=== PATIENT | male | born 1950 | race Caucasian/White ===

== ENCOUNTER 2016-12-22 15:17 | Emergency (ER) | payer MEDICARE, OTHER ==
[~2016-12-22] VITALS: Ht 193 cm; Wt 109.1 kg
[~2016-12-22 15:17] MED LIST: AMITRIPTYLINE H25 M1 PO; ANDROGEL1% TP; ASPIRIN 81M81 MG/TA2 PO; AVODART 0.5MG0.5 MG PO; BYSTOLIC10 MG PO; CELEXA10 MG PO; CENTRUM SILVER1 CTB PO; CIALIS20 MG PO; CRANBERRY1 CAP PO; EPA FISH OIL1000 MG PO; FLEXERIL 1010 MG/TAB PO; GUAIFEN AC 10120 ML PO; HUMULIN 70/3100 U/ML SQ; LANTUS SOLOS100 U/ML SQ; LEVAQUIN 750MG750 M1 PO; LEVEMIR100 U/ML SQ; LOPRESSOR 550 MG/TAB PO; LYRICA 150MG C150 MG PO; MAGNESIUM500 MG PO; NEURONTIN300 MG/CAP PO; NORCO 325 MG-7.1 TAB PO; NOVOLOG 100U100 U/M1 SC; PLENDIL 5MG TAB5 MG PO; PLENDIL10 MG PO; PRILOSEC 20MG20 MG PO; PRILOSEC10 MG PO; PROAIR HFA0.09 MG/AC IH; REQUIP 1MG T1 MG/TAB PO; RT ALBUTER2.5 MG/0.5 IH; SLEEP AID25 M1 PO; SLEEP PO; STOOL SOFTENER100 M2 PO; TEKTURNA150 MG PO; TEKTURNA300 MG PO; TESTIM1% TP; TRICOR145 MG PO; TYLENOL 325MG325 MG PO; VITAMIN B121000 MC2 SL; VITAMIN C PUR1000 MG PO; VITAMIN C500 MG PO; VITAMINC1000TA; ZOCOR 20MG20 MG PO; [UNRECOGNIZED DRUG - CODE] PO; [UNRECOGNIZED DRUG - OTHER] PO; [UNRECOGNIZED DRUG - OTHER] PO
[2016-12-22 15:19] VITALS: TEMP 98.3
[2016-12-22] MEDS ORDERED: BACTRIM DS 8001 TAB PO (15:53)
[2016-12-22 16:40] LABS: BASO % 0.4 % (0.0-2.0); EOS # 0.2 (0.0-0.7); EOS % 2.7 % (0-4.0); GRAN # 4.4 (1.4-6.5); GRAN % 59.2 % (42.2-75.2); HEMATOCRIT 43.4 % (42.0-52.0); HEMOGLOBIN 14.9 g/dl (13.5-18.0); LYMPH # 2.2 (1.2-3.4); LYMPH % 29.1 % (20.0-51.0); MEAN CELL VOLUME 93 fl (80.0-100.0); MEAN CORPUSCULAR HEMOGLOBIN 32 pg (27.0-31.0); MEAN CORPUSCULAR HGB CONC 34 g/dl (33.0-37.0); MEAN PLATELET VOLUME 10.1 fl (7.4-10.4); MONO # 0.6 (0.1-0.6); MONO % 8.2 % (1.7-9.3); PLATELET COUNT 185 K/mm3 (130-400); RED BLOOD COUNT 4.69 M/mm3 (4.20-5.60); REDCELL DISTRIBUTION WIDTH-CV 12.5 % (11.5-14.5); WHITE BLOOD COUNT 7.5 K/mm3 (4.8-10.8)
[2016-12-22 16:51] LABS: ADJUSTED CALCIUM 9.3 mg/dL (8.4-10.2); ALBUMIN 4.3 gm/dL (3.5-5.0); BILIRUBIN,TOTAL 0.6 mg/dL (0.0-1.0); CALCIUM 9.5 mg/dL (8.4-10.2); CREATININE, serum 1.41 mg/dL (0.66-1.25); TOTAL PROTEIN 7.2 gm/dL (6.4-8.2)
[2016-12-22 17:11] LABS: PH 6 (5-8); SQUAMOUS EPITHELIAL None Seen /hpf; URINE APPEARANCE Cloudy; URINE BACTERIA Rare /hpf; URINE BILIRUBIN Negative (NEGATIVE); URINE BLOOD 3+ (NEGATIVE); URINE COLOR Yellow; URINE GLUCOSE Negative (NEGATIVE); URINE KETONE Negative (NEGATIVE); URINE RBC >50 /hpf; URINE UROBILINOGEN Negative (NEGATIVE)
[2016-12-22 17:12] LABS: URINE WBC >50 /hpf
[2016-12-22] MEDS ORDERED: CEFTIN 250250 MG/TAB PO (17:18)
[2016-12-22 17:31] VITALS: BP 145/69; PULSE 64
== END 2016-12-22 17:35 | disposition home or self-care (01) ==
LOC: COL.ER 15:17
PROVIDERS: Nurse Practitioner
DX: N39.0 Urinary tract infection, site not specified (principal); E11.40 Type 2 diabetes mellitus with diabetic neuropathy, unspecified; I10 Essential (primary) hypertension; J45.909 Unspecified asthma, uncomplicated; K21.9 Gastro-esophageal reflux disease without esophagitis; M19.90 Unspecified osteoarthritis, unspecified site; Z79.4 Long term (current) use of insulin; Z79.82 Long term (current) use of aspirin; Z98.890 Other specified postprocedural states
CPT/HCPCS: J7030

== ENCOUNTER 2017-06-30 23:33 | Inpatient (IN) | payer MEDICARE, OTHER ==
[~2017-06-30] VITALS: Ht 193 cm; Wt 110.5 kg
[~2017-06-30 23:33] MED LIST changes: +BACTRIM DS 8001 TAB PO; +CEFTIN 250250 MG/TAB PO; -LOPRESSOR 550 MG/TAB PO; +METOPROLOL TART75 MG PO
[2017-07-01 00:11] LABS: BASO % 0.6 % (0.0-2.0); EOS % 0.6 % (0-4.0); GRAN # 1.6 (1.4-6.5); GRAN % 35.5 % (42.2-75.2); HEMATOCRIT 40.1 % (42.0-52.0); HEMOGLOBIN 13.8 g/dl (13.5-18.0); LYMPH # 2.4 (1.2-3.4); LYMPH % 51.7 % (20.0-51.0); MEAN CELL VOLUME 94 fl (80.0-100.0); MEAN CORPUSCULAR HEMOGLOBIN 32 pg (27.0-31.0); MEAN CORPUSCULAR HGB CONC 34 g/dl (33.0-37.0); MEAN PLATELET VOLUME 10.1 fl (7.4-10.4); MONO # 0.5 (0.1-0.6); PLATELET COUNT 179 K/mm3 (130-400); RED BLOOD COUNT 4.29 M/mm3 (4.20-5.60); WHITE BLOOD COUNT 4.6 K/mm3 (4.8-10.8)
[2017-07-01 00:21] LABS: ADJUSTED CALCIUM 9.8 mg/dL (8.4-10.2); ALBUMIN 4.2 gm/dL (3.5-5.0); BILIRUBIN,TOTAL 0.7 mg/dL (0.0-1.0); C-REACTIVE PROTEIN 2.5 mg/dL (0.0-0.9); CREATININE, serum 1.3 mg/dL (0.66-1.25); POTASSIUM 4.1 mmol/L (3.4-5.0); TOTAL PROTEIN 7.5 gm/dL (6.4-8.2)
[2017-07-01 00:37] LABS: INFLUENZA A NEGATIVE; INFLUENZA B NEGATIVE
[2017-07-01] MEDS ORDERED: NORVASC2.5 MG PO (01:09)
[2017-07-01 02:00] LABS: B-TYPE NATRIURETIC PEPTIDE 13 pg/mL (0-125); TROPONIN-I < 0.012 ng/mL (0.000-0.034)
[2017-07-01] MEDS ORDERED: HCTZ12.5TAB PO (02:53)
[2017-07-01] MEDS ORDERED: DOXYCYCLINE HY100 MG PO (02:59)
[2017-07-01] MEDS ORDERED: NEURONTIN300 MG/CAP PO (03:02)
[2017-07-01 03:04] LABS: ARTERIAL BLD GAS O2 SATURATION 84.3 % (92-100); ARTERIAL BLD GAS TCO2 CT 23.8; ARTERIAL BLOOD GAS HCO3 22.7 meq/L (22-26); ARTERIAL BLOOD GAS PO2 51.5 mmHg (80-100); ARTERIAL BLOOD GAS pH 7.44 (7.35-7.45); OXYHEMOGLOBIN 83.2 %
[2017-07-01 03:05] LABS: ALLEN TEST YES; ALLENS TEST RESULT PASS; ATS? YES
[2017-07-01 03:14] LABS: PROTHROMBIN TIME 12.1 SECONDS (9.7-12.8)
[2017-07-01 03:17] LABS: PARTIAL THROMBOPLASTIN TIME 31.4 SECONDS (26.0-37.0)
[2017-07-01] MEDS ORDERED: NEURONTIN600 MG/TAB PO ×2 (03:34→03:36)
[2017-07-01 04:28] LABS: ARTERIAL BLD GAS O2 SATURATION 94.4 % (92-100); ARTERIAL BLD GAS TCO2 CT 22.4; ARTERIAL BLOOD GAS BASE EXCESS -2.7 (-2-2); ARTERIAL BLOOD GAS HCO3 21.4 meq/L (22-26); ARTERIAL BLOOD GAS PHT 7.41 C (7.35-7.45); ARTERIAL BLOOD GAS PO2 79.7 mmHg (80-100); ARTERIAL BLOOD GAS PO2T 79.7 (80-100); ARTERIAL BLOOD GAS pH 7.41 (7.35-7.45); OXYHEMOGLOBIN 93.6 %
[2017-07-01 04:29] LABS: ALLEN TEST NO; ATS? YES
[2017-07-01 05:10] LABS: COLLECTION METHOD CLEAN CATCH
[2017-07-01 05:16] LABS: MUCOUS Present /lpf; PH 5 (5-8); SQUAMOUS EPITHELIAL None Seen /hpf; URINE APPEARANCE Clear; URINE BACTERIA None Seen /hpf; URINE BILIRUBIN Negative (NEGATIVE); URINE BLOOD Negative (NEGATIVE); URINE COLOR Yellow; URINE GLUCOSE 1+ (NEGATIVE); URINE KETONE Negative (NEGATIVE); URINE LEUKOCYTE ESTERASE Negative (NEGATIVE); URINE PROTEIN(semi-quant) Negative (NEGATIVE); URINE RBC 0-2 /hpf; URINE UROBILINOGEN Negative (NEGATIVE); URINE WBC 0-2 /hpf
[2017-07-01 06:43] LABS: HEMOGLOBIN 12.1 g/dl (13.5-18.0); MEAN CELL VOLUME 96 fl (80.0-100.0); MEAN CORPUSCULAR HEMOGLOBIN 32 pg (27.0-31.0); MEAN CORPUSCULAR HGB CONC 33 g/dl (33.0-37.0); MEAN PLATELET VOLUME 9.8 fl (7.4-10.4); PLATELET COUNT 176 K/mm3 (130-400); RED BLOOD COUNT 3.84 M/mm3 (4.20-5.60); WHITE BLOOD COUNT 3.7 K/mm3 (4.8-10.8)
[2017-07-01 06:50] LABS: ADD PATHOLOGY DIFF REVIEW NO; HEMATOCRIT 36.9 % (42.0-52.0)
[2017-07-01 06:54] LABS: ADJUSTED CALCIUM 9.2 mg/dL (8.4-10.2); ALBUMIN 3.6 gm/dL (3.5-5.0); BILIRUBIN,TOTAL 0.5 mg/dL (0.0-1.0); CALCIUM 8.9 mg/dL (8.4-10.2); CREATININE, serum 1.23 mg/dL (0.66-1.25); TOTAL PROTEIN 6.5 gm/dL (6.4-8.2)
[2017-07-01 07:53] VITALS: BP 133/65; PULSE 77; TEMP 97.5
[2017-07-01 08:25] LABS: BAND 4 % (0-10); LYMPHOCYTE 63 % (20.0-51.0); NEUTROPHILS 31 % (42.0-75.2); PLATELET ESTIMATE NORMAL (NORMAL); TOTAL CELLS COUNTED 100
[2017-07-01] MEDS ORDERED: ANDROGEL1.62PKT2 TOP (09:55)
[2017-07-01 11:36] VITALS: BP 138/63; PULSE 84
[2017-07-01 15:57] VITALS: BP 134/62; PULSE 83; TEMP 97.9
[2017-07-01 20:14] VITALS: BP 147/60; PULSE 99; TEMP 98.4
[2017-07-01 23:50] VITALS: BP 126/53; PULSE 102; TEMP 102.8
[2017-07-02 03:24] VITALS: BP 131/57; PULSE 78; TEMP 98
[2017-07-02 07:11] LABS: MEAN CELL VOLUME 95 fl (80.0-100.0); MEAN CORPUSCULAR HGB CONC 34 g/dl (33.0-37.0); PLATELET COUNT 167 K/mm3 (130-400); RED BLOOD COUNT 3.61 M/mm3 (4.20-5.60); WHITE BLOOD COUNT 3.3 K/mm3 (4.8-10.8)
[2017-07-02 07:14] LABS: HEMATOCRIT 34.3 % (42.0-52.0); HEMOGLOBIN 11.5 g/dl (13.5-18.0); MEAN CORPUSCULAR HEMOGLOBIN 32 pg (27.0-31.0)
[2017-07-02 07:15] LABS: ADD PATHOLOGY DIFF REVIEW NO
[2017-07-02 07:20] LABS: ADJUSTED CALCIUM 9.5 mg/dL (8.4-10.2); ALBUMIN 3.6 gm/dL (3.5-5.0); BILIRUBIN,TOTAL 0.5 mg/dL (0.0-1.0); CALCIUM 9.2 mg/dL (8.4-10.2); CREATININE, serum 1.15 mg/dL (0.66-1.25); POTASSIUM 3.8 mmol/L (3.4-5.0); TOTAL PROTEIN 6.5 gm/dL (6.4-8.2)
[2017-07-02 07:32] VITALS: BP 142/66; PULSE 74; TEMP 97.8
[2017-07-02 07:55] LABS: BAND 5 % (0-10); LYMPHOCYTE 63 % (20.0-51.0); NEUTROPHILS 27 % (42.0-75.2); PLATELET ESTIMATE NORMAL (NORMAL); TOTAL CELLS COUNTED 100
[2017-07-02 12:33] VITALS: BP 143/64; PULSE 81; TEMP 98.1
[2017-07-02 12:59] LABS: CEREBROSPINAL TUBE #4; CSF APPEARANCE CLEAR; CSF COLOR COLORLESS
[2017-07-02 13:54] LABS: CSF POLYMORPHONUCLEAR 0 % (0-6)
[2017-07-02 14:50] LABS: COLLECTION METHOD CLEAN CATCH
[2017-07-02 14:58] LABS: MUCOUS Present /lpf; PH 7 (5-8); SQUAMOUS EPITHELIAL None Seen /hpf; URINE APPEARANCE Clear; URINE BACTERIA None Seen /hpf; URINE BILIRUBIN Negative (NEGATIVE); URINE BLOOD Negative (NEGATIVE); URINE COLOR Yellow; URINE GLUCOSE 1+ (NEGATIVE); URINE KETONE Negative (NEGATIVE); URINE LEUKOCYTE ESTERASE Negative (NEGATIVE); URINE PROTEIN(semi-quant) Negative (NEGATIVE); URINE RBC None Seen /hpf; URINE WBC 0-2 /hpf
[2017-07-02 15:58] VITALS: BP 156/70; PULSE 81; TEMP 98.4
[2017-07-02 20:00] VITALS: BP 173/77; PULSE 92; TEMP 99.5
[2017-07-02 23:54] VITALS: BP 146/86; PULSE 94; TEMP 98.7
[2017-07-03 00:57] VITALS: BP 152/71; PULSE 81; TEMP 98.9
[2017-07-03 03:42] VITALS: BP 158/60; PULSE 84; TEMP 99.4
[2017-07-03 06:39] LABS: HEMATOCRIT 37.1 % (42.0-52.0); HEMOGLOBIN 12.1 g/dl (13.5-18.0); MEAN CELL VOLUME 96 fl (80.0-100.0); MEAN CORPUSCULAR HEMOGLOBIN 31 pg (27.0-31.0); MEAN CORPUSCULAR HGB CONC 33 g/dl (33.0-37.0); PLATELET COUNT 165 K/mm3 (130-400); RED BLOOD COUNT 3.86 M/mm3 (4.20-5.60); WHITE BLOOD COUNT 4.1 K/mm3 (4.8-10.8)
[2017-07-03 06:41] LABS: ADD PATHOLOGY DIFF REVIEW NO
[2017-07-03 06:55] LABS: CREATININE, serum 1.12 mg/dL (0.66-1.25)
[2017-07-03 07:13] LABS: BAND 10 % (0-10); LYMPHOCYTE 44 % (20.0-51.0); NEUTROPHILS 40 % (42.0-75.2); TOTAL CELLS COUNTED 100
[2017-07-03 07:14] LABS: PLATELET ESTIMATE NORMAL (NORMAL)
[2017-07-03 07:15] LABS: HYPOCHROMIA 1+
[2017-07-03 08:08] VITALS: BP 146/70; PULSE 82; TEMP 98.6
[2017-07-03 11:11] LABS: ARTERIAL BLD GAS O2 SATURATION 91.3 % (92-100); ARTERIAL BLD GAS TCO2 CT 26.8; ARTERIAL BLOOD GAS HCO3 25.6 meq/L (22-26); ARTERIAL BLOOD GAS PHT 7.46 C (7.35-7.45); ARTERIAL BLOOD GAS PO2 61.9 mmHg (80-100); ARTERIAL BLOOD GAS PO2T 61.9 (80-100); ARTERIAL BLOOD GAS pH 7.46 (7.35-7.45); OXYHEMOGLOBIN 90.2 %
[2017-07-03 11:12] LABS: ALLEN TEST YES; ALLENS TEST RESULT PASS; ATS? YES
[2017-07-03 11:17] VITALS: BP 142/65; PULSE 78; TEMP 98.1
[2017-07-03 15:54] VITALS: BP 150/63; PULSE 81; TEMP 97.9
[2017-07-03 19:42] VITALS: BP 162/64; PULSE 80; TEMP 98.9
[2017-07-04] VITALS (7 sets, daily range): BP systolic 137–173; BP diastolic 65–82; PULSE 58–104; TEMP 97.7–99.6
[2017-07-04 07:05] LABS: MEAN CELL VOLUME 95 fl (80.0-100.0); MEAN CORPUSCULAR HEMOGLOBIN 32 pg (27.0-31.0); MEAN CORPUSCULAR HGB CONC 33 g/dl (33.0-37.0); MEAN PLATELET VOLUME 9.9 fl (7.4-10.4); PLATELET COUNT 149 K/mm3 (130-400); WHITE BLOOD COUNT 3.5 K/mm3 (4.8-10.8)
[2017-07-04 07:13] LABS: ADD PATHOLOGY DIFF REVIEW NO; HEMATOCRIT 36.2 % (42.0-52.0)
[2017-07-04 07:21] LABS: ADJUSTED CALCIUM 9.4 mg/dL (8.4-10.2); ALBUMIN 3.4 gm/dL (3.5-5.0); BILIRUBIN,TOTAL 0.7 mg/dL (0.0-1.0); CALCIUM 8.9 mg/dL (8.4-10.2); CREATININE, serum 1.11 mg/dL (0.66-1.25); TOTAL PROTEIN 6.5 gm/dL (6.4-8.2)
[2017-07-04 10:21] LABS: BAND 11 % (0-10); EOSINOPHIL 5 % (0-4); LYMPHOCYTE 50 % (20.0-51.0); NEUTROPHILS 22 % (42.0-75.2); PLATELET ESTIMATE DECREASED (NORMAL); TOTAL CELLS COUNTED 100
[2017-07-04 15:07] LABS: HSV BY PCR 1 DNA Negative (Negative); HSV BY PCR 2 DNA Negative (Negative)
[2017-07-05 03:43] VITALS: BP 166/76; PULSE 76; TEMP 99.4
[2017-07-05 07:22] LABS: HEMATOCRIT 37.4 % (42.0-52.0); HEMOGLOBIN 12.8 g/dl (13.5-18.0); MEAN CELL VOLUME 94 fl (80.0-100.0); MEAN CORPUSCULAR HEMOGLOBIN 32 pg (27.0-31.0); MEAN CORPUSCULAR HGB CONC 34 g/dl (33.0-37.0); MEAN PLATELET VOLUME 9.9 fl (7.4-10.4); PLATELET COUNT 162 K/mm3 (130-400); RED BLOOD COUNT 3.98 M/mm3 (4.20-5.60); WHITE BLOOD COUNT 3.4 K/mm3 (4.8-10.8)
[2017-07-05 07:55] LABS: CALCIUM 9.2 mg/dL (8.4-10.2); CREATININE, serum 1.06 mg/dL (0.66-1.25); MAGNESIUM 1.9 mg/dL (1.6-2.3); PHOSPHOROUS 4.4 mg/dL (2.5-4.5); POTASSIUM 3.8 mmol/L (3.4-5.0)
[2017-07-05 08:11] LABS: ADD PATHOLOGY DIFF REVIEW NO
[2017-07-05 08:13] VITALS: BP 126/68; PULSE 81; TEMP 99.6
[2017-07-05 11:10] LABS: BAND 12 % (0-10); BASOPHIL 1 % (0-2); EOSINOPHIL 2 % (0-4); LYMPHOCYTE 53 % (20.0-51.0); NEUTROPHILS 21 % (42.0-75.2); PLATELET ESTIMATE NORMAL (NORMAL); TOTAL CELLS COUNTED 100
[2017-07-05 11:31] VITALS: BP 132/66; PULSE 73; TEMP 97.7
[2017-07-05] MEDS ORDERED: NORVASC 5MG5 MG/TAB PO (12:21)
== END 2017-07-05 14:26 | disposition home or self-care (01) | DRG 872 ==
LOC: COL.ER 23:33 → MEDICAL 07-01 02:48
PROVIDERS: Emergency Medicine; Internal Medicine; Nurse Practitioner Family; Physician Assistant
PROC: 009U3ZX Drainage of Spinal Canal, Percutaneous Approach, Diagnostic (ICD-10-PCS; principal; 2017-07-02)
DX: A41.9 Sepsis, unspecified organism (principal); I12.9 Hypertensive chronic kidney disease with stage 1 through stage 4 chronic kidney disease, or unspecified chronic kidney disease; E11.22 Type 2 diabetes mellitus with diabetic chronic kidney disease; N18.9 Chronic kidney disease, unspecified; R91.1 Solitary pulmonary nodule; G25.81 Restless legs syndrome; R51 Headache; E78.5 Hyperlipidemia, unspecified; J45.909 Unspecified asthma, uncomplicated; Z98.84 Bariatric surgery status; Z79.4 Long term (current) use of insulin
CPT/HCPCS: 99223-AI; 99232-AI; 99239; A9284; G8987-GO; G8988-GO; J0133; J1170; J1650; J1815; J2185; J2405; J3370; J3475; J7030; J7040; J7050; Q9967

== ENCOUNTER → 2017-07-30 | Outpatient (CLI) | payer MEDICARE, OTHER ==
[2017-07-30] VITALS (9 sets, daily range): BP systolic 122–144; BP diastolic 72–84; PULSE 82–93
[~2017-07-30] VITALS: Ht 193 cm; Wt 106.9 kg
[~2017-07-30] MED LIST changes: +ANDROGEL1.62PKT2 TOP; +DOXYCYCLINE HY100 MG PO; +HCTZ12.5TAB PO; +NEURONTIN600 MG/TAB PO; +NORVASC 10MG10 MG PO; +NORVASC 5MG5 MG/TAB PO; +NORVASC2.5 MG PO
== END ==
LOC: COL.RAD 09:00
DX: R91.1 Solitary pulmonary nodule (principal); Z87.81 Personal history of (healed) traumatic fracture; Z85.828 Personal history of other malignant neoplasm of skin

== ENCOUNTER → 2018-01-06 | Outpatient (CLI) | payer MEDICARE, OTHER ==
[~2018-01-06] MED LIST changes: +ANDROGEL1.62% TOP; +ASPIRIN 32325 MG/TAB PO; +B-121000 MCG PO; +BIOTIN5000 MCG PO; +COZAAR 25MG25 MG/TAB PO; +CRANBERRY500 M3 PO; +FISH OIL 1000MG1 CAP PO; +GLUCOSAMIN 500 PO; +GOOD SENSE SLEE25 M1 PO; +LEVEMIR100 U/ML; +LIPITOR 40MG TA40 MG PO; +MAGNESIUM250 M1 PO; +MASON NATURAL2000 IU PO; +MULTIPLE VITAMI1 CAP PO; +NOVOLOG FLEX100 U/ML; +TOPROL XL 25MG25 MG PO; +VITAMIN A10k PO; +VITAMINC1000TA PO
== END ==
LOC: COL.RAD 09:41
DX: G31.1 Senile degeneration of brain, not elsewhere classified (principal); M47.26 Other spondylosis with radiculopathy, lumbar region; M48.061 Spinal stenosis, lumbar region without neurogenic claudication; M99.73 Connective tissue and disc stenosis of intervertebral foramina of lumbar region; M40.56 Lordosis, unspecified, lumbar region; N28.89 Other specified disorders of kidney and ureter; G62.89 Other specified polyneuropathies

== ENCOUNTER 2018-05-05 08:15 | Outpatient (RCR) | payer MEDICARE, OTHER | END 2018-05-23 | disposition home or self-care (01) | LOC: WSC | DX: M54.42 Lumbago with sciatica, left side (principal); M54.41 Lumbago with sciatica, right side; M51.26 Other intervertebral disc displacement, lumbar region; M48.061 Spinal stenosis, lumbar region without neurogenic claudication; M47.816 Spondylosis without myelopathy or radiculopathy, lumbar region; I10 Essential (primary) hypertension; N18.9 Chronic kidney disease, unspecified; Z85.828 Personal history of other malignant neoplasm of skin; Z79.82 Long term (current) use of aspirin; Z79.4 Long term (current) use of insulin; Z79.899 Other long term (current) drug therapy | CPT/HCPCS: G8981-GP; G8982-GP; G8983-GP ==

== ENCOUNTER → 2018-09-10 | Outpatient (CLI) | payer MEDICARE, OTHER ==
[~2018-09-10] MED LIST changes: +BENADRYL25 M2 PO; +COCONUT OIL118.28 ML PO; +COLACE 100100 MG/CAP PO; +COREG 6.256.25 MG/TA PO; +COREG12.5 MG PO; +GAS-X ULTRA ST180 MG PO; +GLUCOSAMIN 500; -LEVEMIR100 U/ML; +NEURONTIN800 MG/TAB PO; -NOVOLOG FLEX100 U/ML; +NOVOLOG FLEX100 U/ML SQ; +OCUVITE1 TA1 PO; +OMNICEF 300MG300 MG PO; +SYNTHROID0.05 MG/TA PO
== END ==
LOC: COL.RAD 12:59
DX: K76.0 Fatty (change of) liver, not elsewhere classified (principal); N20.0 Calculus of kidney; N28.1 Cyst of kidney, acquired; N32.89 Other specified disorders of bladder; Z96.0 Presence of urogenital implants
CPT/HCPCS: Q9967

== ENCOUNTER 2018-10-22 07:45 | Day surgery (SDC) | payer MEDICARE, OTHER ==
[2018-10-22] VITALS (8 sets, daily range): BP systolic 121–145; BP diastolic 60–80; PULSE 60–74; TEMP 97.2–97.9
[~2018-10-22] VITALS: Ht 193 cm; Wt 113.2 kg
[2018-10-22] MEDS ORDERED: HCTZ12.5TAB PO (10:03)
[2018-10-22] MEDS ORDERED: CENTRUM MEN'S (10:05)
[2018-10-22] MEDS ORDERED: GOOD SENSE SLEE25 M1 PO (10:06)
[2018-10-22] MEDS ORDERED: LUTEIN6 MG (10:06)
[2018-10-22] MEDS ORDERED: OMEGA-3 FISH1000 MG PO (10:06)
[2018-10-22] MEDS ORDERED: LEVEMIR FLEX100 U/ML SQ (10:15)
[2018-10-22] MEDS ORDERED: NOVOLIN R100 U/ML IM (10:16)
[2018-10-22] MEDS ORDERED: ANDROGEL1.62% TOP (10:19)
[2018-10-22] MEDS ORDERED: PYRIDIUM 100MG100 MG PO (13:08)
--- NOTE | 2018-10-22 14:06 | NUR ---
PATIENT ARRIVES FROM OR VIA BED. ALERT AND ORIENTED X 3. RESPIRATIONS EVEN AND UNLABORED. POST OP VITAL SIGNS STARTED. PATIENT IS ON 2 LITERS O2 NASAL CANULA. ICE WATER AT BEDSIDE. FRIEND AT BEDSIDE. CALL LIGHT WITHIN REACH. WILL CONTINUE TO MONITOR.
--- NOTE | 2018-10-22 14:10 | NUR ---
O2 DC'D AT THIS TIME. GAVE CRACKERS AND A MUFFIN. VS REMAIN STABLE. CALL LIGHT IN REACH.
--- NOTE | 2018-10-22 14:12 | NUR ---
TOLERATED MUFFIN AND CRACKERS. VS REMAIN STABLE. CALL LIGHT IN REACH. WILL CONTINUE TO MONITOR.
--- NOTE | 2018-10-22 14:17 | NUR ---
DISCHARGE INSTRUCTIONS GIVEN TO PATIENT AND HIS FRIEND. VS REMAIN STABLE. VERBALIZES UNDERSTANDING OF PRESCRIPTION GIVEN AND FOLLOW UP APPOINTMENT INFORMATION. PATIENT AMBULATED TO THE RESTROOM WITHOUT ASSISTANCE. ESCORTED TO PERSONAL VEHICHLE WITH FRIEND AT HIS SIDE.
== END 2018-10-22 14:26 | disposition home or self-care (01) ==
LOC: SDCO 07:45
DX: R31.0 Gross hematuria (principal); I10 Essential (primary) hypertension; J45.909 Unspecified asthma, uncomplicated; R20.2 Paresthesia of skin; Z87.442 Personal history of urinary calculi; E10.40 Type 1 diabetes mellitus with diabetic neuropathy, unspecified; Z79.4 Long term (current) use of insulin; Z85.828 Personal history of other malignant neoplasm of skin; G25.81 Restless legs syndrome; Z86.11 Personal history of tuberculosis; Z87.440 Personal history of urinary (tract) infections; Z86.19 Personal history of other infectious and parasitic diseases; E78.5 Hyperlipidemia, unspecified; K21.9 Gastro-esophageal reflux disease without esophagitis; Z98.84 Bariatric surgery status; Z79.899 Other long term (current) drug therapy; Z79.82 Long term (current) use of aspirin; N18.2 Chronic kidney disease, stage 2 (mild); Z90.79 Acquired absence of other genital organ(s)
CPT/HCPCS: J1100; J1885; J1956; J2405; J2704; J3010; J7030

== ENCOUNTER 2020-07-13 22:03 | Emergency (ER) | payer MEDICARE, OTHER ==
[~2020-07-13] VITALS: Ht 190.5 cm; Wt 115.9 kg
[~2020-07-13 22:03] MED LIST changes: -ASPIRIN 32325 MG/TAB PO; +CENTRUM MEN'S; +CRANBERRY 100 M1 SGL PO; -GLUCOSAMIN 500; +LEVEMIR FLEX100 U/ML SQ; +LUTEIN6 MG PO; +MAGNESIUM200 MG PO; -MAGNESIUM250 M1 PO; -MASON NATURAL2000 IU PO; +NOVOLIN 70/30 710 ML SQ; +NOVOLIN N100 U/ML SQ; +NOVOLIN R100 U/ML IM; +OMEGA-3 FISH1000 MG PO; +PYRIDIUM 100MG100 MG PO; +VITAMIN D250 MCG PO
[2020-07-13 23:19] LABS: BASO % 0.3 % (0.0-2.0); EOS # 0.2 (0.0-0.7); EOS % 1.9 % (0-4.0); GRAN # 8.1 (1.4-6.5); GRAN % 73.8 % (42.2-75.2); HEMOGLOBIN 14.1 g/dl (13.5-18.0); LYMPH # 1.5 (1.2-3.4); MEAN CELL VOLUME 94 fl (80.0-100.0); MEAN CORPUSCULAR HEMOGLOBIN 32 pg (27.0-31.0); MEAN CORPUSCULAR HGB CONC 34 g/dl (33.0-37.0); MEAN PLATELET VOLUME 10.2 fl (7.4-10.4); MONO # 1.1 (0.1-0.6); MONO % 9.6 % (1.7-9.3); PLATELET COUNT 228 K/mm3 (130-400); RED BLOOD COUNT 4.38 M/mm3 (4.20-5.60); REDCELL DISTRIBUTION WIDTH-CV 12.2 % (11.5-14.5)
[2020-07-13 23:39] LABS: ALANINE AMINOTRANSFERASE 44 U/L (4-49); ALBUMIN 4.4 gm/dL (3.5-5.0); ALKALINE PHOSPHATASE 77 U/L (50-136); ANION GAP 12 mmol/L (7-16); AST,SGOT 39 U/L (15-37); BILIRUBIN,TOTAL 0.4 mg/dL (0.0-1.0); BLOOD UREA NITROGEN 20 mg/dL (9-20); C-REACTIVE PROTEIN 0.8 mg/dL (0.0-0.9); CALCIUM 9.4 mg/dL (8.4-10.2); CARBON DIOXIDE 22 mmol/L (22-30); CHLORIDE 102 mmol/L (98-107); CREATININE, serum 1.24 (0.66-1.25); GLUCOSE 374 mg/dL (74-106); SODIUM 137 mmol/L (137-145); TOTAL PROTEIN 7.3 gm/dL (6.4-8.2)
[2020-07-13 23:55] LABS: TROPONIN-I < 0.012 ng/mL (0.000-0.035)
[2020-07-14 00:15] VITALS: TEMP 98.7
[2020-07-14 02:15] VITALS: BP 153/74; PULSE 84
== END 2020-07-14 02:32 | disposition home or self-care (01) ==
LOC: COL.ER 22:03
PROVIDERS: Emergency Medicine
DX: R50.9 Fever, unspecified (principal); M79.10 Myalgia, unspecified site; I13.10 Hypertensive heart and chronic kidney disease without heart failure, with stage 1 through stage 4 chronic kidney disease, or unspecified chronic kidney disease; N18.9 Chronic kidney disease, unspecified; E11.9 Type 2 diabetes mellitus without complications; E78.5 Hyperlipidemia, unspecified; E03.9 Hypothyroidism, unspecified; Z20.828 Contact with and (suspected) exposure to other viral communicable diseases; Z79.82 Long term (current) use of aspirin; Z79.890 Hormone replacement therapy; Z79.4 Long term (current) use of insulin
CPT/HCPCS: J7030

== ENCOUNTER 2020-11-10 15:00 | Inpatient (IN) | payer MEDICARE, OTHER ==
[2020-11-10] VITALS (119 sets, daily range): BP systolic 109–116; BP diastolic 70–74; PULSE 88–98; TEMP 98.3–100; O2SAT 86–98
[~2020-11-10] VITALS: Ht 193 cm; Wt 115.9 kg
[2020-11-10 15:13] LABS: BASO % 0.3 % (0.0-2.0); EOS % 0.3 % (0-4.0); GRAN # 3.1 (1.4-6.5); GRAN % 86.1 % (42.2-75.2); HEMATOCRIT 41.3 % (42.0-52.0); HEMOGLOBIN 13.7 g/dl (13.5-18.0); LYMPH # 0.4 (1.2-3.4); LYMPH % 11.3 % (20.0-51.0); MEAN CELL VOLUME 97 fl (80.0-100.0); MEAN CORPUSCULAR HEMOGLOBIN 32 pg (27.0-31.0); MEAN CORPUSCULAR HGB CONC 33 g/dl (33.0-37.0); MEAN PLATELET VOLUME 9.8 fl (7.4-10.4); MONO # 0.1 (0.1-0.6); MONO % 1.4 % (1.7-9.3); PLATELET COUNT 167 K/mm3 (130-400); RED BLOOD COUNT 4.25 M/mm3 (4.20-5.60); REDCELL DISTRIBUTION WIDTH-CV 12.6 % (11.5-14.5)
[2020-11-10 15:29] LABS: ALANINE AMINOTRANSFERASE 41 U/L (4-49); ALBUMIN 4.1 gm/dL (3.5-5.0); ALKALINE PHOSPHATASE 63 U/L (50-136); ANION GAP 11 mmol/L (7-16); AST,SGOT 46 U/L (15-37); BILIRUBIN,TOTAL 0.6 mg/dL (0.0-1.0); BLOOD UREA NITROGEN 17 mg/dL (9-20); CALCIUM 9.4 mg/dL (8.4-10.2); CARBON DIOXIDE 21 mmol/L (22-30); CHLORIDE 110 mmol/L (98-107); CREATININE, serum 1.19 (0.66-1.25); GLUCOSE 119 mg/dL (74-106); POTASSIUM 3.9 mmol/L (3.4-5.0); SODIUM 141 mmol/L (137-145)
[2020-11-10 15:49] LABS: LIPASE 84 U/L (23-300)
[2020-11-10 16:10] LABS: TROPONIN-I < 0.012 ng/mL (0.000-0.035)
[2020-11-10] MEDS ORDERED: PROSCAR 5MG5 MG PO (17:44)
[2020-11-10] MEDS ORDERED: MICROZIDE12.5 MG PO (17:45)
[2020-11-10] MEDS ORDERED: LEVOXYL0.075 MG PO (17:45)
[2020-11-10] MEDS ORDERED: COZAAR 25MG25 MG/TAB PO (17:46)
[2020-11-10] MEDS ORDERED: REQUIP 1MG T1 MG/TAB PO (17:46)
[2020-11-10] MEDS ORDERED: COREG12.5 MG PO (17:47)
[2020-11-10] MEDS ORDERED: TRICOR145 MG PO (17:47)
[2020-11-10] MEDS ORDERED: LIPITOR 40MG TA40 MG PO (17:48)
[2020-11-10] MEDS ORDERED: NEURONTIN800 MG/TAB PO (17:48)
[2020-11-10] MEDS ORDERED: PROAIR HFA0.09 MG/AC IH (17:49)
[2020-11-10] MEDS ORDERED: FLOVENT DI50 MCG/Act IH (17:49)
[2020-11-10] MEDS ORDERED: NOVOLIN R100 U/ML SQ (17:51)
[2020-11-10] MEDS ORDERED: NOVOLIN N100 U/ML SQ (17:51)
[2020-11-10] MEDS ORDERED: GAS AID MAXIMU125 MG PO (17:52)
[2020-11-10] MEDS ORDERED: STOOL SOFTENER100 M2 PO (17:52)
[2020-11-10] MEDS ORDERED: VITAMIN D 400400 IU PO (17:54)
[2020-11-10] MEDS ORDERED: BIOTIN5000 MCG PO (17:54)
[2020-11-10] MEDS ORDERED: VITAMIN A10k PO (17:55)
[2020-11-10] MEDS ORDERED: MASON NATURAL1200 MG (17:56)
[2020-11-10] MEDS ORDERED: VITAMIN B125000 MCG PO (17:56)
[2020-11-10] MEDS ORDERED: CRANBERRY250 MG PO (17:56)
[2020-11-10] MEDS ORDERED: SLEEP AID50 MG PO (17:57)
[2020-11-10] MEDS ORDERED: VITAMINC1000TA (17:58)
[2020-11-10] MEDS ORDERED: MAGNESIUM200 MG (17:58)
[2020-11-10] MEDS ORDERED: MULTI-VITAMIN W1 TA1 PO (17:59)
[2020-11-10] MEDS ORDERED: PLETAL 100MG T100 MG PO (18:08)
--- NOTE | 2020-11-10 18:24 | NUR ---
PT ADMITTED FROM ED WITH WEAKNESS. PT STOOD AND TRANSFERED TO BED. PT'S VSS. PT ON 3L OXYMASK. PT ORIENTED TO ROOM AND FLOOR. PT INSTRUCTED TO CALL WITH ALL NEEDS. BELINDA MILLER BEDSIDE TO ADMIT PT.
[2020-11-10] MEDS ORDERED: MAGNESIUM200 MG PO (18:35)
[2020-11-10] MEDS ORDERED: [UNRECOGNIZED DRUG - OTHER] (18:36)
[2020-11-10] MEDS ORDERED: ASPIRIN 32325 MG/TAB PO (18:36)
[2020-11-10] MEDS ORDERED: ONE-A-DAY MEN'S1 TAB PO (18:36)
[2020-11-10] MEDS ORDERED: ZYRTEC ALLERGY10 MG PO (18:37)
[2020-11-10] MEDS ORDERED: TYLENOL 500MG500 MG PO (18:37)
[2020-11-10] MEDS ORDERED: KAOPECTATE262 MG/15 PO (18:38)
[2020-11-10 19:03] LABS: COLLECTION METHOD CLEAN CATCH
[2020-11-10 19:09] LABS: PH 5 (5-8); SQUAMOUS EPITHELIAL 0-2 /hpf; URINE APPEARANCE Clear; URINE BACTERIA None Seen /hpf; URINE BILIRUBIN Negative (NEGATIVE); URINE BLOOD Negative (NEGATIVE); URINE COLOR Amber; URINE GLUCOSE Negative (NEGATIVE); URINE KETONE Negative (NEGATIVE); URINE LEUKOCYTE ESTERASE Trace (NEGATIVE); URINE NITRATE Positive (NEGATIVE); URINE PROTEIN(semi-quant) Negative (NEGATIVE); URINE RBC 0-2 /hpf; URINE UROBILINOGEN Negative (NEGATIVE)
--- NOTE | 2020-11-10 19:15 | NUR ---
Received report from ARNOL Odonnell.
--- NOTE | 2020-11-10 20:00 | NUR ---
Patient resting quietly in bed watching television. Visitor, Love, at bedside. All vitals within normal limits; receiving 4L via oxymask, saturation mid-high 90s. Oxygen titrated to 2L. Patient denies any pain or discomfort. Patient provided a sandwich box per his request. No further needs noted at this time.
--- NOTE | 2020-11-10 21:36 | NUR ---
Vancomycin Initial Dosing Pharmacy Note Ordering provider: Jena Campuzano MD Indication/duration: Sepsis unknown source. UTI/GI/Other Relevant comorbidities: HTN, DM LABS: WBC = 3.6, T = 103.1 F, SCr = 1.19 Recommendation: Will draw troughs and follow levels. Loading dose: 2 grams Maintenance dose: 1.5 grams every 12 hours Trough goal: 15-20 ug/mL
--- NOTE | 2020-11-10 22:30 | NUR ---
Patient reports extreme "aching," 8/10 left arm pain that extends to fingers. All vitals within normal limits. Cherie hospitalist, notified. Received orders for PRN morphine and to obtain an EKG and troponin.
[2020-11-11] VITALS (549 sets, daily range): BP systolic 98–147; BP diastolic 50–82; PULSE 69–80; TEMP 98–99.2; O2SAT 83–99
[2020-11-11 05:59] LABS: BASO % 0.2 % (0.0-2.0); EOS % 0.5 % (0-4.0); GRAN # 6.2 (1.4-6.5); GRAN % 72.9 % (42.2-75.2); LYMPH # 1.5 (1.2-3.4); LYMPH % 17.6 % (20.0-51.0); MEAN CELL VOLUME 101 fl (80.0-100.0); MEAN CORPUSCULAR HGB CONC 33 g/dl (33.0-37.0); MEAN PLATELET VOLUME 10.1 fl (7.4-10.4); MONO # 0.7 (0.1-0.6); MONO % 8.4 % (1.7-9.3); PLATELET COUNT 145 K/mm3 (130-400); REDCELL DISTRIBUTION WIDTH-CV 13.3 % (11.5-14.5)
[2020-11-11 06:03] LABS: HEMATOCRIT 34.2 % (42.0-52.0); HEMOGLOBIN 11.1 g/dl (13.5-18.0); MEAN CORPUSCULAR HEMOGLOBIN 33 pg (27.0-31.0)
[2020-11-11 06:08] LABS: CALCIUM 7.7 mg/dL (8.4-10.2); CREATININE, serum 1.31 (0.66-1.25); POTASSIUM 3.8 mmol/L (3.4-5.0)
--- NOTE | 2020-11-11 07:45 | NUR ---
Report recieved from Joyce RN, all questions answered. Patient found awake alert in bed, Oriented x3. Patient states just minor headache at this time. No other complaints. Oxygen in place at 2L via NC. Heart sounds regular, lung sounds clear, bowel sounds active. IV infusing into left forearm without difficulty. Call lawler within reach, will continue to monitor.
--- NOTE | 2020-11-11 10:00 | NUR ---
PATIENT ABLE TO TOLERATE OXYGEN COMING OFF. SPO2 IN THE LOW 90'S. WILL CONTINUE TO MONITOR.
--- NOTE | 2020-11-11 16:20 | NUR ---
SW met with patient to conduct intake evaluation. Patient lives at home in [place] with friend Sridevi Obrien (P# [phone]). Patient elected Sridevi Obrien as DPOA for HC with niece Gwen Barreto (P# [phone]) assigned as alternate agent. Patient was given copies of paperwork, and original was placed on the chart. Patient's PCP is Dr. Brand, and he uses [facility] for medications. Patient denies needing assistance with ADLs and requires no DME. Patient denies needing assistance affording medications. Patient plans to return home at discharge with Sridevi providing transportation. SW will continue to follow.
--- NOTE | 2020-11-11 19:15 | NUR ---
RECEIVED REPORT FROM ARNOL EDEN. PATIENT RESTING COMFORTABLY IN BED WITH EYES OPEN. CALL LIGHT WITHIN REACH. VSS. NS INFUSING.
--- NOTE | 2020-11-11 20:23 | NUR ---
PATIENT REPORTED HAVING CHEST PAIN THAT WAS MEDIAN AND SLIGHTLY TO THE RIGHT OF THE CHEST THAT WAS RADIATING TO THE LEFT NECK AND DOWN LEFT ARM. SAID IT FELT LIKE PRESSURE. ARNOL MCCARTHY NOTIFIED PAUL TREVINO. BELINDA ASKED ASSESSMENT QUESTIONS REGARDING HISTORY OF GERD. PATIENT SAID PAIN WAS 8/10 ON NUMERIC PAIN SCALE AND EXPLAINED THAT HE HAD HAD SURGERY TO CORRECT GERD AND THE PAIN WAS DIFFERENT THAN PREVIOUS HEARTBURN PRIOR TO CORECTIVE SURGERY. GAVE 2 SUBLINGUAL NITROGLYCERIN TABLETS. BP WAS 150s/80s AND CAME DOWN TO 140s/70s. TROPONIN WAS ORDERED. PATIENT DID NOT COMPLAIN OF SHORTNESS OF BREATH OR LIGHTHEADEDNESS OR DIZZINESS. PATIENT REPORTED FEELING LESS PAIN/PRESSURE AFTER RECEIVING FIRST DOSE OF NITROGLYCERIN. WILL CONTINUE TO MONITOR.
[2020-11-12] VITALS (303 sets, daily range): BP systolic 136–175; BP diastolic 65–95; PULSE 67–75; TEMP 97.8–98.1; O2SAT 86–96
[2020-11-12 05:09] LABS: BASO % 0.2 % (0.0-2.0); EOS # 0.1 (0.0-0.7); EOS % 1.9 % (0-4.0); GRAN # 2.4 (1.4-6.5); GRAN % 50.3 % (42.2-75.2); HEMOGLOBIN 10.9 g/dl (13.5-18.0); LYMPH # 1.6 (1.2-3.4); LYMPH % 33.9 % (20.0-51.0); MEAN CELL VOLUME 100 fl (80.0-100.0); MEAN CORPUSCULAR HEMOGLOBIN 32 pg (27.0-31.0); MEAN CORPUSCULAR HGB CONC 32 g/dl (33.0-37.0); MEAN PLATELET VOLUME 10.3 fl (7.4-10.4); MONO # 0.6 (0.1-0.6); MONO % 13.3 % (1.7-9.3); PLATELET COUNT 146 K/mm3 (130-400); RED BLOOD COUNT 3.36 M/mm3 (4.20-5.60); REDCELL DISTRIBUTION WIDTH-CV 12.7 % (11.5-14.5)
[2020-11-12 05:17] LABS: HEMATOCRIT 33.7 % (42.0-52.0)
[2020-11-12 05:22] LABS: ANION GAP 4 mmol/L (7-16); BLOOD UREA NITROGEN 13 mg/dL (9-20); CALCIUM 7.9 mg/dL (8.4-10.2); CARBON DIOXIDE 23 mmol/L (22-30); CHLORIDE 112 mmol/L (98-107); CREATININE, serum 1.14 (0.66-1.25); GLUCOSE 182 mg/dL (74-106); POTASSIUM 3.9 mmol/L (3.4-5.0); SODIUM 140 mmol/L (137-145)
[2020-11-12 05:32] LABS: TROPONIN-I < 0.012 ng/mL (0.000-0.035)
--- NOTE | 2020-11-12 07:00 | NUR ---
RECEIVED REPORT FROM ARNOL GROSS. PT SLEEPIGN BUT AROUSES EASILY WHEN RN WALKS IN. PT ON OXYMASK AT 2L. VSS. CALL LIGHT WITHIN REACH.
--- NOTE | 2020-11-12 10:38 | NUR ---
Initial visit; Patient thanked Lan Administrator for looking in on him and offering God's blessings.
--- NOTE | 2020-11-12 17:40 | NUR ---
REPORT CALLED TO ARNOL GARCIA. PT TRANSFERRED VIA WC ON RA. ALL PERSONAL BELONGINGS SENT WITH PT.
--- NOTE | 2020-11-12 18:00 | NUR ---
Patient arrived to room 311 from ICU at this time by wheelchair, he is alert/oriented, was able to transfer back to his bed independently, denies needs at this time, call light in reach
--- NOTE | 2020-11-12 22:35 | NUR ---
PT PLACED ON NOX OX AT THIS TIME. 95% ON ROOM AIR
[2020-11-13 03:14] VITALS: BP 155/73; PULSE 70; TEMP 98.4
--- NOTE | 2020-11-13 05:15 | NUR ---
PATIENT SLEPT WELL MOST OF NIGHT. PATIENT HAD SOME WORRIES THAT HE WOULD DROP THE OXIMETRY METER AND FEARED FALLING ASLEEP. REASSURED PATIENT THAT NOTHING BAD CAN HAPPEN AND ENCOURAGED REST. PATIENT HAS HAD VERY FEW NEEDS THIS SHIFT.
[2020-11-13 07:12] LABS: BASO % 0.2 % (0.0-2.0); EOS # 0.1 (0.0-0.7); EOS % 1.8 % (0-4.0); GRAN # 2.2 (1.4-6.5); GRAN % 47.4 % (42.2-75.2); HEMOGLOBIN 11.9 g/dl (13.5-18.0); LYMPH # 1.7 (1.2-3.4); LYMPH % 36.8 % (20.0-51.0); MEAN CELL VOLUME 97 fl (80.0-100.0); MEAN CORPUSCULAR HEMOGLOBIN 32 pg (27.0-31.0); MEAN CORPUSCULAR HGB CONC 33 g/dl (33.0-37.0); MEAN PLATELET VOLUME 10.6 fl (7.4-10.4); MONO # 0.6 (0.1-0.6); MONO % 12.9 % (1.7-9.3); PLATELET COUNT 165 K/mm3 (130-400); RED BLOOD COUNT 3.72 M/mm3 (4.20-5.60); REDCELL DISTRIBUTION WIDTH-CV 12.3 % (11.5-14.5)
[2020-11-13 07:15] LABS: HEMATOCRIT 35.9 % (42.0-52.0)
[2020-11-13 07:19] LABS: CALCIUM 8.8 mg/dL (8.4-10.2); CREATININE, serum 1.07 (0.66-1.25); POTASSIUM 3.8 mmol/L (3.4-5.0)
[2020-11-13 08:12] VITALS: BP 173/72; PULSE 71; TEMP 98.3
--- NOTE | 2020-11-13 08:50 | NUR ---
*late entry 11/12* Physician Assistant met with the patient to revisit the discharge plan. The patient plans to return home with OP PT. The patient would like to schedule it.
[2020-11-13] MEDS ORDERED: TYLENOL 325MG325 MG PO (10:11)
[2020-11-13] MEDS ORDERED: OMNICEF 300MG300 MG PO (10:17)
[2020-11-13 11:39] VITALS: BP 159/82; PULSE 64; TEMP 97.6
--- NOTE | 2020-11-13 11:53 | NUR ---
Folder Stitcher Operator attended clinical rounds with the team. The patient will discharge home today, 11/13. The patient declined outpatient PT. He reports he will follow up with his PCP. The patient had a nocturnal oximetry done overnight. A sleep study is being recommending. The patient states he would like to follow up with his PCP regarding sleep study. There are no additional needs.
--- NOTE | 2020-11-13 12:45 | NUR ---
Patient is discharging home. Discharge instructions discussed with patient. No questions verbalized. INT discontinued. All belongings packed up and sent with patient. Explained when his follow up appointment is. Patient did not want to go home with oxygen so he will follow up with his primary doctor about a sleep study. Explained he has prescriptions to lease picker at the pharmacy. He verbalized understanding. All belongings packed up and sent with patient. Patient walked out with Flaquita AMBROSE.
== END 2020-11-13 13:00 | disposition home or self-care (01) | DRG 871 ==
LOC: COL.ER 15:00 → ICU 17:35 → MEDICAL 11-12 18:10
PROVIDERS: Emergency Medicine; Hospitalist; Student in an Organized Health Care Education/Training Program; ADMIT Student in an Organized Health Care Education/Training Program
DX: A41.9 Sepsis, unspecified organism (principal); J96.01 Acute respiratory failure with hypoxia; N39.0 Urinary tract infection, site not specified; R07.89 Other chest pain; K52.9 Noninfective gastroenteritis and colitis, unspecified; I12.9 Hypertensive chronic kidney disease with stage 1 through stage 4 chronic kidney disease, or unspecified chronic kidney disease; B96.89 Other specified bacterial agents as the cause of diseases classified elsewhere; E11.22 Type 2 diabetes mellitus with diabetic chronic kidney disease; N18.9 Chronic kidney disease, unspecified; E11.40 Type 2 diabetes mellitus with diabetic neuropathy, unspecified; E03.9 Hypothyroidism, unspecified; E78.5 Hyperlipidemia, unspecified; G25.81 Restless legs syndrome; D63.1 Anemia in chronic kidney disease; R53.81 Other malaise; K57.90 Diverticulosis of intestine, part unspecified, without perforation or abscess without bleeding; G89.29 Other chronic pain; M54.2 Cervicalgia; Z79.890 Hormone replacement therapy; Z79.4 Long term (current) use of insulin; Z79.82 Long term (current) use of aspirin
CPT/HCPCS: 99223-AI; 99232-AI; 99239; J0696; J1644; J1815; J2270; J2405; J3010; J3370; J7030; J7050; J7120; Q9967

== ENCOUNTER 2021-11-18 16:18 | Emergency (ER) | payer MEDICARE, OTHER ==
[~2021-11-18] VITALS: Ht 193 cm; Wt 118.2 kg
[~2021-11-18 16:18] MED LIST changes: +ASPIRIN 32325 MG/TAB PO; +CRANBERRY250 MG PO; +FLOVENT DI50 MCG/Act IH; +GAS AID MAXIMU125 MG PO; +KAOPECTATE262 MG/15 PO; +LEVOXYL0.075 MG PO; +MAGNESIUM200 MG; +MASON NATURAL1200 MG; +MICROZIDE12.5 MG PO; +MULTI-VITAMIN W1 TA1 PO; +NOVOLIN R100 U/ML SQ; +ONE-A-DAY MEN'S1 TAB PO; +PLETAL 100MG T100 MG PO; +PROSCAR 5MG5 MG PO; +SLEEP AID50 MG PO; +TYLENOL 500MG500 MG PO; +VITAMIN B125000 MCG PO; +VITAMIN D 400400 IU PO; +ZYRTEC ALLERGY10 MG PO; +[UNRECOGNIZED DRUG - OTHER]
[2021-11-18 16:34] VITALS: TEMP 97.8
[2021-11-18] MEDS ORDERED: NORCO 325 MG-51 TAB PO (17:25)
[2021-11-18 17:37] VITALS: BP 178/94; PULSE 86
== END 2021-11-18 17:37 | disposition home or self-care (01) ==
LOC: COL.ER 16:18
DX: T63.2X1A Toxic effect of venom of scorpion, accidental (unintentional), initial encounter (principal)
CPT/HCPCS: J1885

== ENCOUNTER 2022-01-21 19:45 | Emergency (ER) | payer MEDICARE, OTHER ==
[~2022-01-21] VITALS: Ht 193 cm; Wt 113.6 kg
[~2022-01-21 19:45] MED LIST changes: +NORCO 325 MG-51 TAB PO
[2022-01-21 19:47] VITALS: TEMP 97.7
[2022-01-21 20:44] LABS: BASO % 0.4 % (0.0-2.0); EOS # 0.2 K/mm3 (0.0-0.7); EOS % 2.1 % (0.0-4.0); GRAN # 4.6 K/mm3 (1.4-6.5); GRAN % 58.7 % (42.2-75.2); HEMATOCRIT 38.6 % (42.0-52.0); HEMOGLOBIN 12.5 g/dl (13.5-18.0); LYMPH # 2.3 K/mm3 (1.2-3.4); LYMPH % 29.3 % (20.0-51.0); MEAN CELL VOLUME 99 fl (80.0-100.0); MEAN CORPUSCULAR HEMOGLOBIN 32 pg (27-31); MEAN CORPUSCULAR HGB CONC 32 g/dl (33.0-37.0); MEAN PLATELET VOLUME 11.5 fl (7.4-10.4); MONO # 0.7 K/mm3 (0.1-0.6); MONO % 8.9 % (1.7-9.3); PLATELET COUNT 149 K/mm3 (130-400); RED BLOOD COUNT 3.91 M/mm3 (4.20-5.60); REDCELL DISTRIBUTION WIDTH-CV 12.7 % (11.5-14.5)
[2022-01-21 20:55] LABS: ALANINE AMINOTRANSFERASE 51 U/L (0-55); ALBUMIN 3.7 gm/dL (3.4-4.8); ALKALINE PHOSPHATASE 62 U/L (40-150); ANION GAP 15 mmol/L (7-16); AST,SGOT 38 U/L (5-34); BILIRUBIN,TOTAL 0.5 mg/dL (0.2-1.2); BLOOD UREA NITROGEN 22 mg/dL (8-26); CALCIUM 8.8 mg/dL (8.4-10.2); CARBON DIOXIDE 18 mmol/L (23-31); CHLORIDE 111 mmol/L (98-107); CREATININE, serum 1.48 mg/dL (0.72-1.25); GLUCOSE 203 mg/dL (70-99); POTASSIUM 4.2 mmol/L (3.5-4.5); SODIUM 144 mmol/L (136-145); TOTAL PROTEIN 6.7 gm/dL (6.2-8.1)
[2022-01-21 21:09] LABS: TROPONIN-I < 0.010 ng/mL (0.00-0.033)
[2022-01-21 21:35] LABS: COLLECTION METHOD CLEAN CATCH
[2022-01-21 21:47] LABS: MUCOUS Present (NOT PRESENT); PH 5 (5-8); URINE APPEARANCE Hazy (CLEAR/HAZY); URINE BACTERIA None Seen /hpf (NONE SEEN); URINE BILIRUBIN Negative (NEGATIVE); URINE BLOOD Negative (NEGATIVE); URINE COLOR Yellow (YELLOW); URINE GLUCOSE 1+ (NEGATIVE); URINE KETONE Trace (NEGATIVE); URINE LEUKOCYTE ESTERASE Negative (NEGATIVE); URINE NITRATE Negative (NEGATIVE); URINE PROTEIN(semi-quant) 1+ (NEGATIVE); URINE RBC 0-2 /hpf (0-2); URINE UROBILINOGEN Negative (NEGATIVE)
[2022-01-21 23:19] VITALS: BP 133/68; PULSE 63
== END 2022-01-21 23:24 | disposition home or self-care (01) ==
LOC: COL.ER 19:45
PROVIDERS: Nurse Practitioner
DX: R55 Syncope and collapse (principal); Z20.822 Contact with and (suspected) exposure to COVID-19

== ENCOUNTER 2022-02-28 08:59 | Emergency (ER) | payer MEDICARE ==
[~2022-02-28] VITALS: Ht 190.5 cm; Wt 113.6 kg
[2022-02-28 09:19] VITALS: TEMP 97.8
[2022-02-28 09:36] LABS: COLLECTION METHOD CLEAN CATCH
[2022-02-28 09:46] LABS: PH 5 (5-8); SQUAMOUS EPITHELIAL 0-2 /hpf (0-10); URINE APPEARANCE Cloudy (CLEAR/HAZY); URINE BACTERIA Rare /hpf (NONE SEEN); URINE BLOOD 3+ (NEGATIVE); URINE COLOR Yellow (YELLOW); URINE GLUCOSE Negative (NEGATIVE); URINE KETONE Negative (NEGATIVE); URINE NITRATE Negative (NEGATIVE); URINE PROTEIN(semi-quant) 1+ (NEGATIVE); URINE RBC >50 /hpf (0-2); URINE UROBILINOGEN Negative (NEGATIVE)
[2022-02-28 10:05] LABS: BASO % 0.4 % (0.0-2.0); EOS # 0.3 K/mm3 (0.0-0.7); EOS % 3.8 % (0.0-4.0); GRAN # 4.3 K/mm3 (1.4-6.5); GRAN % 60.1 % (42.2-75.2); HEMATOCRIT 38.3 % (42.0-52.0); HEMOGLOBIN 12.9 g/dl (13.5-18.0); LYMPH # 1.7 K/mm3 (1.2-3.4); LYMPH % 23.7 % (20.0-51.0); MEAN CELL VOLUME 95 fl (80.0-100.0); MEAN CORPUSCULAR HEMOGLOBIN 32 pg (27-31); MEAN CORPUSCULAR HGB CONC 34 g/dl (33.0-37.0); MEAN PLATELET VOLUME 10.4 fl (7.4-10.4); MONO # 0.8 K/mm3 (0.1-0.6); MONO % 11.4 % (1.7-9.3); PLATELET COUNT 189 K/mm3 (130-400); RED BLOOD COUNT 4.02 M/mm3 (4.20-5.60); REDCELL DISTRIBUTION WIDTH-CV 12.5 % (11.5-14.5)
[2022-02-28 10:34] LABS: ALBUMIN 3.8 gm/dL (3.4-4.8); BILIRUBIN,TOTAL 0.4 mg/dL (0.2-1.2); CALCIUM 9.1 mg/dL (8.4-10.2); CREATININE, serum 1.16 mg/dL (0.72-1.25); POTASSIUM 4.2 mmol/L (3.5-4.5); TOTAL PROTEIN 6.6 gm/dL (6.2-8.1)
[2022-02-28] MEDS ORDERED: NORCO 325 MG-51 TAB PO (12:15)
[2022-02-28] MEDS ORDERED: BACTRIM DS 8001 TAB PO (12:15)
[2022-02-28 12:24] VITALS: BP 143/77; PULSE 57
== END 2022-02-28 12:24 | disposition home or self-care (01) ==
LOC: COL.ER 08:59
PROVIDERS: Emergency Medicine
DX: N39.0 Urinary tract infection, site not specified (principal); Z88.0 Allergy status to penicillin
CPT/HCPCS: J2270; J2405; J7030; Q9967

== ENCOUNTER 2023-08-07 08:45 | Emergency (ER) | payer MEDICARE, OTHER ==
[~2023-08-07] VITALS: Ht 190.5 cm; Wt 111.4 kg
[~2023-08-07 08:45] MED LIST changes: +ALPHAGAN OPHTH D5 ML OU; +AZO-CRANBERRY450 MG; +COREG 25MG25 MG/TAB PO; +COZAAR 50MG50 MG/TAB PO; +GAS RELIEF125 MG PO; +IMDUR 30MG30 MG/TAB PO; +LUMIGAN 5 ML5 M1 OP; +MAGNESIUM250 M1 PO; +NITROSTAT0.4 MG/TAB SL; +OMEGA-3 1000 MG1 CAP PO; +PLAVIX 75MG TAB75 MG PO; +REQUIP2 MG PO; +VITAMIN D362.5 MC1 PO
[2023-08-07 08:56] VITALS: TEMP 98.7
[2023-08-07] MEDS ORDERED: NS 1,000 ML IV ONE (09:00)
[2023-08-07] MEDS ORDERED: Ondansetron 4 MG/2 ML VIAL IV ONE (09:15)
[2023-08-07] MEDS ORDERED: Morphine 4 MG/ML VIAL IV PRN (09:15)
[2023-08-07 09:35] LABS: BASO % 0.5 % (0.0-2.0); EOS # 0.3 K/mm3 (0.0-0.7); EOS % 4.7 % (0.0-4.0); GRAN # 2.8 K/mm3 (1.4-6.5); GRAN % 48.8 % (42.2-75.2); HEMATOCRIT 40.5 % (42.0-52.0); HEMOGLOBIN 13.5 g/dl (13.5-18.0); LYMPH % 35.4 % (20.0-51.0); MEAN CELL VOLUME 97 fl (80.0-100.0); MEAN CORPUSCULAR HEMOGLOBIN 33 pg (27-31); MEAN CORPUSCULAR HGB CONC 33 g/dl (33.0-37.0); MEAN PLATELET VOLUME 10.5 fl (7.4-10.4); MONO # 0.6 K/mm3 (0.1-0.6); MONO % 9.9 % (1.7-9.3); PLATELET COUNT 189 K/mm3 (130-400); RED BLOOD COUNT 4.16 M/mm3 (4.20-5.60); REDCELL DISTRIBUTION WIDTH-CV 12.5 % (11.5-14.5)
[2023-08-07 09:52] LABS: BILIRUBIN,TOTAL 0.5 mg/dL (0.2-1.2); C-REACTIVE PROTEIN 0.97 mg/dL (0.00-0.50); CALCIUM 9.9 mg/dL (8.4-10.2); CREATININE, serum 1.42 mg/dL (0.72-1.25); POTASSIUM 4.5 mmol/L (3.5-4.5); TOTAL PROTEIN 7.3 gm/dL (6.2-8.1)
[2023-08-07 10:42] LABS: COLLECTION METHOD CLEAN CATCH
[2023-08-07] MEDS ORDERED: NAPROSYN500 MG PO (10:46)
[2023-08-07 10:55] LABS: MUCOUS Present (NOT PRESENT); PH 5.5 (5.0-8.5); SQUAMOUS EPITHELIAL 0-2 /hpf (0-10); URINE APPEARANCE Clear (CLEAR/HAZY); URINE BLOOD Negative (NEGATIVE); URINE COLOR Yellow (YELLOW); URINE GLUCOSE 3+ (NEGATIVE); URINE KETONE Negative (NEGATIVE); URINE NITRATE Negative (NEGATIVE); URINE PROTEIN(semi-quant) Negative (NEGATIVE); URINE UROBILINOGEN 0.2 E.U/dL (0.2-1.0)
[2023-08-07 11:25] VITALS: BP 115/58; PULSE 60
== END 2023-08-07 11:40 | disposition home or self-care (01) ==
LOC: COL.ER 08:45
PROVIDERS: Emergency Medicine
DX: K63.89 Other specified diseases of intestine (principal); E11.9 Type 2 diabetes mellitus without complications
CPT/HCPCS: J2270; J2405; J7030

== ENCOUNTER 2024-05-06 11:01 | Inpatient (IN) | payer MEDICARE, OTHER ==
[~2024-05-06] VITALS: Ht 190.5 cm; Wt 115.0 kg
[~2024-05-06 11:01] MED LIST changes: +GLUCOPHAGE XR750 MG PO; +HCTZ 25MG TAB25 MG PO; +NAPROSYN500 MG PO; +OSTEO-BI-FLEX 21 TAB PO; +TAMIFLU30 MG PO; +TRESIBA FL100 UNIT/1 SQ; +TYLENOL PM EXTR1 TA1 PO; +VITAMIN B122500 MCG SL
[2024-05-06] MEDS ORDERED: CATAPRES 0.1MG0.1 MG PO (11:12)
[2024-05-06] MEDS ORDERED: NS 1,000 ML IV ONE ×2 (11:45→12:30)
[2024-05-06 11:56] VITALS: BP 81/53; PULSE 52
[2024-05-06 12:02] LABS: BASO % 0.7 % (0.0-2.0); EOS # 0.2 K/mm3 (0.0-0.7); EOS % 3.8 % (0.0-4.0); GRAN # 1.8 K/mm3 (1.4-6.5); GRAN % 43.7 % (42.2-75.2); HEMATOCRIT 37.6 % (42.0-52.0); HEMOGLOBIN 12.7 g/dl (13.5-18.0); LYMPH # 1.8 K/mm3 (1.2-3.4); LYMPH % 42.7 % (20.0-51.0); MEAN CELL VOLUME 97 fl (80.0-100.0); MEAN CORPUSCULAR HEMOGLOBIN 33 pg (27-31); MEAN CORPUSCULAR HGB CONC 34 g/dl (33.0-37.0); MEAN PLATELET VOLUME 10.5 fl (7.4-10.4); MONO # 0.4 K/mm3 (0.1-0.6); MONO % 8.4 % (1.7-9.3); PLATELET COUNT 191 K/mm3 (130-400); RED BLOOD COUNT 3.86 M/mm3 (4.20-5.60); REDCELL DISTRIBUTION WIDTH-CV 12.6 % (11.5-14.5)
[2024-05-06 12:06] LABS: ALBUMIN 3.5 g/dL (3.4-4.8); BILIRUBIN,TOTAL 0.4 mg/dL (0.2-1.2); CALCIUM 9.6 mg/dL (8.4-10.2); CREATININE, serum 1.57 mg/dL (0.72-1.25); POTASSIUM 4.5 mEq/L (3.5-4.5); TOTAL PROTEIN 6.4 g/dl (6.2-8.1)
[2024-05-06 12:11] LABS: TROPONIN-I 0.014 ng/mL (0.00-0.033)
--- NOTE | 2024-05-06 17:58 | NUR ---
PATIENT TO ROOM 316.
[2024-05-06 18:11] VITALS: BP_SYST 137
[2024-05-06] MEDS ORDERED: Ondansetron 4 MG/2 ML VIAL IV PRN (18:15)
[2024-05-06] MEDS ORDERED: Acetaminophen 500 MG TAB PO PRN (18:15)
[2024-05-06 18:28] VITALS: BP 144/76; PULSE 47; TEMP 97.5
--- NOTE | 2024-05-06 18:30 | NUR ---
PATIENT ORIENTED TO ROOM 316. ASSESSMENT COMPLETED. AMBULATED TO BED WITH MINIMAL DIZZINESS. PATIENT INSTRUCTED TO CALL BEFORE GETTING UP. BED ALARM ON. PT DENIES PAIN. DENIES FURTHER NEEDS.
[2024-05-06 19:03] LABS: COLLECTION METHOD CLEAN CATCH
[2024-05-06 19:07] LABS: PH 6.5 (5.0-8.5); URINE APPEARANCE CLEAR (CLEAR/HAZY); URINE BLOOD NEGATIVE (NEGATIVE); URINE COLOR YELLOW (YELLOW); URINE GLUCOSE NEGATIVE (NEGATIVE); URINE KETONE NEGATIVE (NEGATIVE); URINE NITRATE NEGATIVE (NEGATIVE); URINE PROTEIN(semi-quant) NEGATIVE (NEGATIVE); URINE UROBILINOGEN 0.2 E.U/dL (0.2-1.0)
[2024-05-06] MEDS ORDERED: hydrALAZINE 20 MG/ML 1 ML VIAL IV PRN (19:45)
[2024-05-06] MEDS ORDERED: Dextrose 50% Water 25 GM/50 ML SYRINGE IV PRN (20:00)
[2024-05-06] MEDS ORDERED: Insulin Lispro (HumaLOG) SQ SCH (20:00)
[2024-05-06] MEDS ORDERED: Dextrose (Glucose) 15 GM (4 x 3.75 GM) Chewable TABLET PACK PO PRN (20:00)
[2024-05-06] MEDS ORDERED: Glucagon 1 MG VIAL IM PRN (20:00)
--- NOTE | 2024-05-06 20:46 | NUR ---
PATIENTS HEART RATE SINUS SEAN MID 40S CONSISTENTLY. DANIEL REYES APRN NOTIFIED. WILL HOLD EVENING DOSE OF CARVEDILOL D/T BRADYCARDIA.
[2024-05-06] MEDS ORDERED: Atorvastatin 80 MG TAB PO SCH (21:00)
[2024-05-06] MEDS ORDERED: Losartan 50 MG TAB PO SCH (21:00)
[2024-05-06] MEDS ORDERED: Carvedilol 25 MG TAB PO SCH (21:00)
[2024-05-06] MEDS ORDERED: rOPINIRole 1 MG TAB PO SCH (21:30)
[2024-05-06] MEDS ORDERED: Gabapentin 400 MG CAP PO SCH (22:00)
[2024-05-07] VITALS (10 sets, daily range): BP systolic 119–177; BP diastolic 65–79; PULSE 55–66; TEMP 97.8–98.2
[2024-05-07 06:33] LABS: BASO % 0.4 % (0.0-2.0); EOS # 0.2 K/mm3 (0.0-0.7); EOS % 3.4 % (0.0-4.0); GRAN # 2.3 K/mm3 (1.4-6.5); GRAN % 43.6 % (42.2-75.2); HEMOGLOBIN 12.5 g/dl (13.5-18.0); LYMPH # 2.2 K/mm3 (1.2-3.4); LYMPH % 40.7 % (20.0-51.0); MEAN CELL VOLUME 96 fl (80.0-100.0); MEAN CORPUSCULAR HEMOGLOBIN 34 pg (27-31); MEAN CORPUSCULAR HGB CONC 35 g/dl (33.0-37.0); MEAN PLATELET VOLUME 10.4 fl (7.4-10.4); MONO # 0.6 K/mm3 (0.1-0.6); MONO % 11.3 % (1.7-9.3); PLATELET COUNT 156 K/mm3 (130-400); RED BLOOD COUNT 3.72 M/mm3 (4.20-5.60); REDCELL DISTRIBUTION WIDTH-CV 12.5 % (11.5-14.5)
[2024-05-07 06:40] LABS: HEMATOCRIT 35.8 % (42.0-52.0)
[2024-05-07 06:47] LABS: CREATININE, serum 1.2 mg/dL (0.72-1.25); POTASSIUM 4.3 mEq/L (3.5-4.5)
--- NOTE | 2024-05-07 07:15 | NUR ---
PATIENT AWAKE AND ALERT, SITTING UP IN BED, PATIENT DENIES ANY NEEDS OR COMPLAINTS AT THIS TIME. CALL LIGHT WTIHIN REACH.
[2024-05-07] MEDS ORDERED: Heparin 5,000 UNITS/ML 1 ML VIAL SQ SCH (08:00)
[2024-05-07] MEDS ORDERED: Insulin Lispro (HumaLOG) SQ SCH (08:00)
[2024-05-07] MEDS ORDERED: Influenza Virus Vaccine, Hi-Dose Triv '24-25 (65 YR+) 0.5 ML SYRINGE IM SCH (09:00)
[2024-05-07] MEDS ORDERED: rOPINIRole 1 MG TAB PO SCH (09:00)
[2024-05-07] MEDS ORDERED: Docusate Sodium 100 MG CAP PO SCH (09:00)
[2024-05-07] MEDS ORDERED: Isosorbide Mononitrate CR (24-HR) 30 MG TAB PO SCH (09:00)
[2024-05-07] MEDS ORDERED: Fenofibrate 54 MG TABLET PO SCH (09:00)
[2024-05-07] MEDS ORDERED: Clopidogrel 75 MG TAB PO SCH (09:00)
[2024-05-07] MEDS ORDERED: Insulin Glargine-ygfn (Lantus) SQ SCH (09:00)
[2024-05-07] MEDS ORDERED: hydroCHLOROthiazide 12.5 MG CAP PO SCH (09:43)
--- NOTE | 2024-05-07 12:28 | NUR ---
Data: Patient politely declined spiritual care visit offered during Shop Superintendent rounds. Assessment: None at this time. Plan of Care: Chaplains will remain available as requested while Patient is admitted to this hospital.
--- NOTE | 2024-05-07 16:00 | NUR ---
PATIENT IS COMPLAINING OF PAIN RATED A 5/10 TO THE EPIGASTRIC REGION OF THE ABD. PATIENT STATED IT IS A CONSTANT DULL PAIN, AND IS CONCERNED THIS HAS BEGAN D/T BEGINING A NEW MEDICAITON TODAY. NOTIFIED.. PATEINT GIVEN TYLENOL
[2024-05-07] MEDS ORDERED: VITAMIN A PO SCH (21:00)
[2024-05-08] VITALS (9 sets, daily range): BP systolic 111–172; BP diastolic 57–91; PULSE 54–68; TEMP 97.7–97.9
[2024-05-08 06:21] LABS: BASO % 0.4 % (0.0-2.0); EOS # 0.2 K/mm3 (0.0-0.7); GRAN # 1.8 K/mm3 (1.4-6.5); GRAN % 34.8 % (42.2-75.2); HEMOGLOBIN 12.8 g/dl (13.5-18.0); LYMPH # 2.5 K/mm3 (1.2-3.4); LYMPH % 48.6 % (20.0-51.0); MEAN CELL VOLUME 97 fl (80.0-100.0); MEAN CORPUSCULAR HEMOGLOBIN 33 pg (27-31); MEAN CORPUSCULAR HGB CONC 34 g/dl (33.0-37.0); MEAN PLATELET VOLUME 10.4 fl (7.4-10.4); MONO # 0.6 K/mm3 (0.1-0.6); MONO % 11.4 % (1.7-9.3); PLATELET COUNT 175 K/mm3 (130-400); RED BLOOD COUNT 3.92 M/mm3 (4.20-5.60); REDCELL DISTRIBUTION WIDTH-CV 12.5 % (11.5-14.5)
[2024-05-08 06:42] LABS: CALCIUM 9.5 mg/dL (8.4-10.2); CREATININE, serum 1.27 mg/dL (0.72-1.25)
[2024-05-08] MEDS ORDERED: Insulin Glargine-ygfn (Lantus) SQ SCH (09:00)
--- NOTE | 2024-05-08 11:25 | NUR ---
SW met with patient to complete intake/discharge planning. Patient provides he resides in [facility]. Point of contact and DPOA/HC is Sridevi Obrien [phone]. Patient provides he is independent with ADLs, does not utilize DME nor home health services. PCP is Dr. Brand, and pharmacy is [facility]. Patient provides he has no concerns about care and plans to discharge home up on discharge. SW will continue to follow. Discharge plan: home
[2024-05-08] MEDS ORDERED: hydrALAZINE 25 MG TAB PO SCH (17:00)
--- NOTE | 2024-05-08 19:20 | NUR ---
PATIENT SITTING UP IN BEDSIDE RECLINER WITH TV ON WITH NO FAMILY PRESENT WITH NO ACUTE DISTRESS NOTED. PATIENT ON ROOM AIR. INT TO RIGHT WRIST INTACT WTIH NO COMPLICATIONS NOTED. TELEMETRY INTACT. BEDSIDE SHIFT REPORT COMPLETED WITH ARI AT THIS TIME. PATIENT DENIES ANY NEEDS. RECLINER LOCKED AND CALL LIGHT WITHIN REACH.
--- NOTE | 2024-05-08 20:50 | NUR ---
PATIENT RESTING IN BED WATCHING MOVIE ON CELL PHONE WITH TV OFF WITH NO FAMILY PRESENT WITH NO ACUTE DISTRESS NOTED. PATIENT ON ROOM AIR. INT TO RIGHT WRIST INTACT WITH NO COMPLICATIONS NOTED. TELEMETRY INTACT. ASSESSMENT AND MEDICATION ADMINISTRATION COMPLETED AT THIS TIME. PATIENT TOLERATED WELL. ALL NEEDS MET. BED IN LOW POSITION WITH WHEELS LOCKED WITH RAILS UP X2 AND CALL LIGHT WITHIN REACH.
[2024-05-09 00:58] VITALS: BP 159/78; PULSE 61; TEMP 98.2
[2024-05-09 01:00] VITALS: BP_SYST 159
[2024-05-09 05:11] VITALS: BP 159/82; PULSE 61; TEMP 98.1
[2024-05-09 05:12] VITALS: BP_SYST 159
[2024-05-09 07:50] VITALS: BP 141/68; PULSE 64; TEMP 98
--- NOTE | 2024-05-09 08:05 | NUR ---
Patient is resting in bed, watching TV and having breakfast. Alert and oriented x4, VSS. Would like to go home today. Denies any pain or discomfort. Tele in place, NSR. Assessment completed, meds given. No further needs at this time. Call light within reach.
[2024-05-09 08:50] VITALS: BP_SYST 141
[2024-05-09] MEDS ORDERED: APRESOLINE 25MG25 MG PO (10:12)
[2024-05-09] MEDS ORDERED: COZAAR 50MG50 MG/TAB PO (10:13)
[2024-05-09] MEDS ORDERED: TRESIBA FL100 UNIT/1 SQ (10:15)
--- NOTE | 2024-05-09 11:59 | NUR ---
Patient was provided with discharge information, all questions answered. IV access and telemetry discontinued.
--- NOTE | 2024-05-09 12:39 | NUR ---
Property Analyst met with patient who is set to discharge today to present and review IM form. Patient verbalized understanding and provided signature. SW placed form in chart and provided copy to patient.
== END 2024-05-09 12:15 | disposition home or self-care (01) | DRG 316 ==
LOC: COL.ER 11:01 → MEDICAL 14:35
PROVIDERS: Family Medicine; ADMIT Internal Medicine
DX: I95.9 Hypotension, unspecified (principal); E10.40 Type 1 diabetes mellitus with diabetic neuropathy, unspecified; E10.22 Type 1 diabetes mellitus with diabetic chronic kidney disease; I12.9 Hypertensive chronic kidney disease with stage 1 through stage 4 chronic kidney disease, or unspecified chronic kidney disease; N18.9 Chronic kidney disease, unspecified; R00.1 Bradycardia, unspecified; E78.5 Hyperlipidemia, unspecified; G25.81 Restless legs syndrome; N40.0 Benign prostatic hyperplasia without lower urinary tract symptoms; M40.209 Unspecified kyphosis, site unspecified; Z79.899 Other long term (current) drug therapy; Z79.4 Long term (current) use of insulin; Z88.0 Allergy status to penicillin; Z88.7 Allergy status to serum and vaccine; Z88.1 Allergy status to other antibiotic agents; Z88.8 Allergy status to other drugs, medicaments and biological substances; Z86.74 Personal history of sudden cardiac arrest; Z95.5 Presence of coronary angioplasty implant and graft; Z23 Encounter for immunization
CPT/HCPCS: J1644; J1815; J2405; J7030